=== PATIENT | male | born 1990 | race Two or more races ===

== ENCOUNTER 2023-01-05 10:22 | Emergency (ER) | payer MEDICAID ==
[~2023-01-05] VITALS: Ht 188 cm; Wt 121.5 kg
[2023-01-05 12:52] VITALS: BP 139/64; PULSE 99; RESP 16; TEMP 98.1; O2SAT 99
[2023-01-05] MEDS ORDERED: HYDROcodone-ACET 5/325MG TAB PO ONE (13:00)
[2023-01-05] MEDS ORDERED: HYDROcodone-ACET 5/325MG TAB ONE (13:25)
[2023-01-05] MEDS ORDERED: HYDR1TAB97 PO ×2 (14:19→15:15)
== END 2023-01-05 14:01 | disposition home or self-care (01) ==
LOC: ER 10:22
DX: S52.022A Displaced fracture of olecranon process without intraarticular extension of left ulna, initial encounter for closed fracture (principal); V86.56XA Driver of dirt bike or motor/cross bike injured in nontraffic accident, initial encounter; Y93.89 Activity, other specified; Y92.89 Other specified places as the place of occurrence of the external cause; Y99.8 Other external cause status
CPT/HCPCS: 29125; 73080